=== PATIENT | female | born 1935 | race Caucasian/White ===

== ENCOUNTER 2020-02-10 18:26 | Inpatient (IN) ==
[2020-02-10] MEDS ORDERED: ONDANSETRON 4 MG/2 ML VIAL IV STA (18:58)
[2020-02-10] MEDS ORDERED: ASPIRIN 325 MG TABLET PO STA (18:58)
[2020-02-10 19:11] LABS: Basophils # 0.1 10*3/uL (0.0-0.2); Basophils % 0.5 % (0.0-0.8); Eosinophils # 0.3 10*3/uL (0.0-0.87); Eosinophils % 2.9 % (0.00-10.9); Hematocrit 41.4 VOL% (35.7-47.0); Hemoglobin 14.4 GM/DL (12.0-16.0); Immature Granulocytes % 0.4 %; Immature Granulocytes Absolute 0.04 #; Lymphocytes # 3.8 10*3/uL (1.4-4.0); Lymphocytes % 34.7 % (21.3-54.2); Mean Corpuscular HGB Conc 34.8 GM/DL (32-36); Mean Corpuscular Volume 80.2 FL (87-102); Mean Platelet Volume 9.5 FL (9.6-12.0); Monocytes % 9.2 % (1.7-12.7); Neutrophils % 52.3 % (38.7-73.9); Platelet Count 308 T/CUMM (130-400); Red Blood Count 5.16 MC/CUMM (3.8-5.5); Red Cell Distribution Width 16.9 % (9.3-17.3)
[2020-02-10 19:30] LABS: PT Patient Result 10.8 SECS (9.8-11.9)
[2020-02-10 19:41] LABS: Alanine Aminotransferase 36 U/L (13-56); Albumin 3.3 G/DL (3.4-5.0); Alkaline Phosphatase 150 U/L (45-117); Aspartate Amino Transferase 29 U/L (0-37); Bilirubin,Total < 0.39 MG/DL (0.2-1.0); Blood Urea Nitrogen 15 MG/DL (7-18); Calcium 9.1 MG/DL (8.5-10.1); Estimated Glom Filtration Rate 60 ML/MIN; Glucose 95 MG/DL (74-106); Osmolality,Calculated 258.9 MOS/KG (273-304); Total Protein 6.4 G/DL (6.4-8.3); Troponin I < 0.015 NG/ML (0.00-0.045)
[2020-02-10] MEDS ORDERED: FUROSEMIDE 40 MG/4 ML VIAL IV STA (20:01)
[2020-02-10 20:21] LABS: Bilirubin,Urine Negative (Negative); Blood, Urine Negative (Negative); Glucose,Urine (UA) Negative (Negative); Ketones,Urine Negative (Negative); Nitrite,Urine Negative (Negative); Protein,Urine 100 MG/DL; Urine Appearance CLEAR (Clear); Urine Color Straw (Yellow); Urine Specific Gravity 1.004 (1.001-1.035); Urine Urobilinogen < 2.0 EU/DL (0.2-1.0)
[2020-02-10 20:58] LABS: Free T4 (Free Thyroxine) 1.31 NG/DL (0.76-1.46); Thyroid Stimulating Hormone 15.9 uIU/ml (0.358-3.74)
[2020-02-10] MEDS ORDERED: NITROPRUSSIDE 100 MG in DEXTROSE 5% 246 ML IV PRN (21:30)
[2020-02-10] MEDS ORDERED: ALBUTEROL 2.5 MG/3 ML NEB RESP TX PRN (21:49)
[2020-02-10] MEDS ORDERED: ONDANSETRON 4 MG/2 ML VIAL IV PRN (21:49)
[2020-02-10] MEDS ORDERED: LEVOTHYROXINE 100 MCG VIAL IV ONE (22:00)
[2020-02-10] MEDS ORDERED: DOPamine 800 MG/250 ML PREMIX IV SCH (22:00)
[2020-02-10] MEDS ORDERED: ENOXAPARIN 40 MG/0.4 ML SYRINGE SUBCUT SCH (22:00)
[2020-02-10] MEDS: LACTATED RINGERS 1,000 ML IV SCH (23:51)
[2020-02-11] MEDS: PANTOPRAZOLE 40 MG VIAL IV SCH ×2 (00:09→21:59)
[2020-02-11] MEDS: busPIRone 10 MG TABLET PO SCH ×2 (02:48→15:42)
[2020-02-11 04:59] LABS: Basophils % 0.4 % (0.0-0.8); Eosinophils # 0.3 10*3/uL (0.0-0.87); Eosinophils % 2.3 % (0.00-10.9); Hematocrit 35.9 VOL% (35.7-47.0); Hemoglobin 12.5 GM/DL (12.0-16.0); Immature Granulocytes % 0.4 %; Immature Granulocytes Absolute 0.04 #; Lymphocytes # 3.5 10*3/uL (1.4-4.0); Lymphocytes % 31.1 % (21.3-54.2); Mean Corpuscular HGB Conc 34.8 GM/DL (32-36); Mean Corpuscular Volume 80.3 FL (87-102); Mean Platelet Volume 9.9 FL (9.6-12.0); Monocytes % 10.4 % (1.7-12.7); Neutrophils % 55.4 % (38.7-73.9); Platelet Count 271 T/CUMM (130-400); Red Blood Count 4.47 MC/CUMM (3.8-5.5); Red Cell Distribution Width 16.4 % (9.3-17.3); White Blood Count 11.3 T/CUMM (4-12)
[2020-02-11 05:19] LABS: Alanine Aminotransferase 29 U/L (13-56); Albumin 2.7 G/DL (3.4-5.0); Alkaline Phosphatase 117 U/L (45-117); Aspartate Amino Transferase 22 U/L (0-37); Blood Urea Nitrogen 14 MG/DL (7-18); Calcium 8.4 MG/DL (8.5-10.1); Estimated Glom Filtration Rate 62 ML/MIN; Glucose 110 MG/DL (74-106); Osmolality,Calculated 265.5 MOS/KG (273-304); Total Protein 5.6 G/DL (6.4-8.3); Troponin I < 0.015 NG/ML (0.00-0.045)
[2020-02-11] MEDS: LEVOTHYROXINE 150 MCG TABLET PO SCH (07:24)
[2020-02-11] MEDS: INSULIN NPH 100 UNIT/ML SUBCUT SCH ×2 (08:44→17:54)
[2020-02-11] MEDS: ASPIRIN EC 81 MG TABLET PO SCH (09:05)
[2020-02-11] MEDS: LACTATED RINGERS 1,000 ML IV SCH (09:23)
[2020-02-11] MEDS ORDERED: ceFAZolin 1,000 MG VIAL IRRIG ONE (09:43)
[2020-02-11 10:38] LABS: Risk Ratio 3.21; VLDL CHOLESTEROL 18.6 MG/DL
[2020-02-11] MEDS ORDERED: HEPARIN/NACL 0.9% 2 UNITS/ML 500 ML IV ONE (13:35)
[2020-02-11] MEDS ORDERED: TISSUE ADHESIVE 1 EACH APPLICATOR TOP ONE (13:35)
[2020-02-11] MEDS ORDERED: ceFAZolin 1,000 MG VIAL ONE (13:35)
[2020-02-11] MEDS ORDERED: LIDOCAINE 1% 20 ML VIAL ONE (13:35)
[2020-02-11] MEDS ORDERED: MIDAZOLAM 2 MG/2 ML VIAL ONE ×2 (13:47→14:07)
[2020-02-11] MEDS ORDERED: fentaNYL 100 MCG/2 ML VIAL ONE (13:48)
[2020-02-11] MEDS ORDERED: diphenhydrAMINE CAP 25 MG CAPSULE PO ONE (14:00)
[2020-02-11] MEDS ORDERED: DIAZEPAM 5 MG TABLET PO ONE (14:00)
[2020-02-11] MEDS ORDERED: FUROSEMIDE 20 MG/2 ML VIAL IV ONE (15:40)
[2020-02-11] MEDS: carvediloL 6.25 MG TABLET PO SCH (21:59)
[2020-02-12 04:36] LABS: Basophils % 0.4 % (0.0-0.8); Eosinophils # 0.5 10*3/uL (0.0-0.87); Eosinophils % 4.8 % (0.00-10.9); Hematocrit 37.4 VOL% (35.7-47.0); Hemoglobin 12.9 GM/DL (12.0-16.0); Immature Granulocytes % 0.5 %; Immature Granulocytes Absolute 0.05 #; Lymphocytes % 19.5 % (21.3-54.2); Mean Corpuscular HGB Conc 34.5 GM/DL (32-36); Mean Corpuscular Volume 81.5 FL (87-102); Mean Platelet Volume 9.8 FL (9.6-12.0); Monocytes % 11.2 % (1.7-12.7); Neutrophils % 63.6 % (38.7-73.9); Platelet Count 285 T/CUMM (130-400); Red Blood Count 4.59 MC/CUMM (3.8-5.5); Red Cell Distribution Width 16.9 % (9.3-17.3); White Blood Count 10.2 T/CUMM (4-12)
[2020-02-12 04:52] LABS: Calcium 8.3 MG/DL (8.5-10.1); Osmolality,Calculated 267.1 MOS/KG (273-304)
[2020-02-12] MEDS: LEVOTHYROXINE 150 MCG TABLET PO SCH (05:25)
[2020-02-12] MEDS: ASPIRIN EC 81 MG TABLET PO SCH (09:27)
[2020-02-12] MEDS: carvediloL 6.25 MG TABLET PO SCH (09:27)
[2020-02-12] MEDS: INSULIN NPH 100 UNIT/ML SUBCUT SCH ×2 (09:28→16:57)
[2020-02-12] MEDS ORDERED: hydrALAZINE 20 MG/1 ML VIAL IV PRN (11:25)
[2020-02-12] MEDS ORDERED: carvediloL 6.25 MG TABLET PO ONE (11:25)
[2020-02-12] MEDS: amLODIPine 5 MG TABLET PO SCH (11:33)
[2020-02-12] MEDS ORDERED: hydrALAZINE 20 MG/1 ML VIAL IV ONE (13:07)
[2020-02-12] MEDS ORDERED: FUROSEMIDE 20 MG/2 ML VIAL IV ONE (14:00)
[2020-02-12] MEDS: ENOXAPARIN 40 MG/0.4 ML SYRINGE SUBCUT SCH (15:00)
[2020-02-12] MEDS: carvediloL 12.5 MG TABLET PO SCH (20:43)
[2020-02-12] MEDS: PANTOPRAZOLE 40 MG VIAL IV SCH (22:20)
[2020-02-13 04:05] LABS: Basophils % 0.4 % (0.0-0.8); Eosinophils # 0.8 10*3/uL (0.0-0.87); Eosinophils % 7.1 % (0.00-10.9); Hematocrit 37.6 VOL% (35.7-47.0); Hemoglobin 12.8 GM/DL (12.0-16.0); Immature Granulocytes % 0.4 %; Immature Granulocytes Absolute 0.04 #; Lymphocytes # 2.8 10*3/uL (1.4-4.0); Lymphocytes % 24.9 % (21.3-54.2); Mean Corpuscular Volume 82.3 FL (87-102); Mean Platelet Volume 9.3 FL (9.6-12.0); Monocytes % 11.7 % (1.7-12.7); Neutrophils % 55.5 % (38.7-73.9); Platelet Count 245 T/CUMM (130-400); Red Blood Count 4.57 MC/CUMM (3.8-5.5); Red Cell Distribution Width 16.8 % (9.3-17.3); White Blood Count 11.1 T/CUMM (4-12)
[2020-02-13 04:23] LABS: Calcium 8.2 MG/DL (8.5-10.1); Osmolality,Calculated 261.7 MOS/KG (273-304)
[2020-02-13] MEDS: LEVOTHYROXINE 150 MCG TABLET PO SCH (06:20)
[2020-02-13] MEDS: INSULIN NPH 100 UNIT/ML SUBCUT SCH ×2 (08:53→18:28)
[2020-02-13] MEDS: carvediloL 12.5 MG TABLET PO SCH (08:53)
[2020-02-13] MEDS: ASPIRIN EC 81 MG TABLET PO SCH (08:54)
[2020-02-13] MEDS: amLODIPine 5 MG TABLET PO SCH (08:54)
[2020-02-13] MEDS ORDERED: carvediloL 12.5 MG TABLET PO ONE (10:29)
[2020-02-13] MEDS: ENOXAPARIN 40 MG/0.4 ML SYRINGE SUBCUT SCH (15:03)
[2020-02-13] MEDS: SPIRONOLACTONE 25 MG TABLET PO SCH ×2 (18:24→22:21)
[2020-02-13] MEDS ORDERED: EZETIMIBE 10 MG TABLET PO SCH (21:00)
[2020-02-13] MEDS: carvediloL 25 MG TABLET PO SCH (22:20)
[2020-02-13] MEDS: PANTOPRAZOLE 40 MG VIAL IV SCH (22:21)
[2020-02-14] MEDS: LEVOTHYROXINE 150 MCG TABLET PO SCH (05:45)
[2020-02-14 05:47] LABS: Basophils % 0.4 % (0.0-0.8); Eosinophils # 0.8 10*3/uL (0.0-0.87); Hematocrit 36.3 VOL% (35.7-47.0); Hemoglobin 12.4 GM/DL (12.0-16.0); Immature Granulocytes % 0.3 %; Immature Granulocytes Absolute 0.03 #; Lymphocytes # 2.4 10*3/uL (1.4-4.0); Lymphocytes % 24.8 % (21.3-54.2); Mean Corpuscular HGB Conc 34.2 GM/DL (32-36); Mean Corpuscular Volume 81.6 FL (87-102); Mean Platelet Volume 9.2 FL (9.6-12.0); Monocytes % 11.4 % (1.7-12.7); Neutrophils % 55.1 % (38.7-73.9); Platelet Count 234 T/CUMM (130-400); Red Blood Count 4.45 MC/CUMM (3.8-5.5); Red Cell Distribution Width 16.8 % (9.3-17.3); White Blood Count 9.5 T/CUMM (4-12)
[2020-02-14 06:09] LABS: Calcium 8.2 MG/DL (8.5-10.1); Osmolality,Calculated 265.7 MOS/KG (273-304)
[2020-02-14] MEDS ORDERED: amLODIPine 10 MG TABLET PO SCH (09:00)
[2020-02-14] MEDS ORDERED: hydrALAZINE 25 MG TABLET PO SCH (09:00)
[2020-02-14] MEDS: INSULIN NPH 100 UNIT/ML SUBCUT SCH (09:17)
[2020-02-14] MEDS: carvediloL 25 MG TABLET PO SCH (09:19)
[2020-02-14] MEDS: SPIRONOLACTONE 25 MG TABLET PO SCH (09:19)
[2020-02-14] MEDS: ASPIRIN EC 81 MG TABLET PO SCH (09:19)
[2020-02-14 11:32] VITALS: BP 156/63
== END 2020-02-14 13:55 | disposition home health service (06) | DRG 242 ==
LOC: N.ED 18:26 → N.EDINP 21:03 → SUATTDRO 21:03 → N.ICU 23:35 → N.TELEN 02-13 15:28
PROVIDERS: ADMIT Family Medicine; ATTEND Family Medicine

== ENCOUNTER 2021-10-05 07:05 | Inpatient (IN) ==
[2021-10-01 12:09] LABS: Basophils # 0.1 10*3/uL (0.0-0.2); Basophils % 0.7 % (0.0-0.8); Eosinophils # 0.7 10*3/uL (0.0-0.87); Eosinophils % 7.3 % (0.00-10.9); Hematocrit 44.1 VOL% (35.7-47.0); Immature Granulocytes % 0.3 %; Immature Granulocytes Absolute 0.03 #; Lymphocytes # 2.7 10*3/uL (1.4-4.0); Lymphocytes % 29.8 % (21.3-54.2); Mean Corpuscular Volume 86.1 FL (87-102); Mean Platelet Volume 9.6 FL (9.6-12.0); Monocytes # 1.1 10*3/uL (0.11-0.8); Monocytes % 11.7 % (1.7-12.7); Neutrophils % 50.2 % (38.7-73.9); Platelet Count 293 T/CUMM (130-400); Red Blood Count 5.12 MC/CUMM (3.8-5.5); Red Cell Distribution Width 13.3 % (9.3-17.3); White Blood Count 9.2 T/CUMM (4-12)
[2021-10-01 12:49] LABS: Albumin 3.4 G/DL (3.4-5.0); Bilirubin,Total 0.4 MG/DL (0.20-1.00); Calcium 9.1 MG/DL (8.5-10.1); Osmolality,Calculated 277.1 MOS/KG (273-304); Potassium 4.3 MMOL/L (3.5-5.1); Total Protein 6.3 G/DL (6.4-8.2)
[~2021-10-05 07:05] MED LIST: LACTATED RINGERS 1,000 ML IV SCH; SODIUM CHLORIDE 0.9% 100 ML IV ONE; ceFAZolin 1,000 MG VIAL ONE
[2021-10-05] MEDS ORDERED: SCOPOLAMINE 1.5 MG PATCH TRANSDERM ONE (07:19)
[2021-10-05] MEDS ORDERED: DIAZEPAM 5 MG TABLET PO ONE (07:19)
[2021-10-05] MEDS ORDERED: FAMOTIDINE 20 MG TABLET PO ONE (07:19)
[2021-10-05] MEDS ORDERED: fentaNYL 100 MCG/2 ML VIAL ONE (08:35)
[2021-10-05] MEDS ORDERED: HEPARIN 5,000 UNIT/1 ML VIAL ONE (08:52)
[2021-10-05] MEDS ORDERED: ETOMIDATE 40 MG/20 ML VIAL IV ONE (08:55)
[2021-10-05] MEDS ORDERED: ePHEDrine 50 MG/ML VIAL ONE (08:55)
[2021-10-05] MEDS ORDERED: ROCURONIUM 50 MG/5 ML VIAL IV ONE (08:55)
[2021-10-05] MEDS ORDERED: HEPARIN 10,000 UNIT/10 ML VIAL ONE (08:55)
[2021-10-05] MEDS ORDERED: PHENYLEPHRINE 1 MG/10 ML SYRINGE IV ONE (08:55)
[2021-10-05] MEDS ORDERED: PROTAMINE SULFATE 50 MG/5 ML VIAL IV ONE (08:55)
[2021-10-05] MEDS ORDERED: SEVOFLURANE 1 UNIT/15 MINUTE INH ONE ×4 (09:09→09:57)
[2021-10-05] MEDS ORDERED: SODIUM CHLORIDE 0.9% 1,000 ML IV ONE (09:57)
[2021-10-05] MEDS ORDERED: ONDANSETRON 4 MG/2 ML VIAL ONE (10:08)
[2021-10-05] MEDS ORDERED: CALCIUM CHLORIDE 1,000 MG/10 ML VIAL IV ONE (10:15)
[2021-10-05] MEDS ORDERED: NEOSTIGMINE 10 MG/10 ML VIAL ONE (10:34)
[2021-10-05] MEDS ORDERED: GLYCOPYRROLATE 0.4 MG/2 ML VIAL ONE (10:34)
[2021-10-05] MEDS ORDERED: SUGAMMADEX 200 MG/2 ML VIAL IV ONE (10:36)
[2021-10-05] MEDS ORDERED: GLUCAGON 1 MG VIAL IM PRN (10:48)
[2021-10-05] MEDS ORDERED: HYDROmorphone 1 MG/1 ML SYRINGE IV PRN ×2 (10:48)
[2021-10-05] MEDS ORDERED: PROMETHAZINE 25 MG/1 ML VIAL IM PRN (10:48)
[2021-10-05] MEDS ORDERED: NITROPRUSSIDE 100 MG in DEXTROSE 5% 250 ML IV PRN (10:48)
[2021-10-05] MEDS ORDERED: NALOXONE 0.4 MG/ML VIAL IV PRN (10:48)
[2021-10-05] MEDS ORDERED: PHENYLEPHRINE DRIP 40 MG/250 ML PREMIX IV PRN (10:48)
[2021-10-05] MEDS ORDERED: oxyCODONE/ACETAMINOPHEN 5-325 MG TABLET PO PRN ×2 (10:48)
[2021-10-05] MEDS ORDERED: ONDANSETRON 4 MG/2 ML VIAL IV PRN (10:48)
[2021-10-05 11:49] VITALS: BP 141/55
[2021-10-05] MEDS: LACTATED RINGERS 1,000 ML IV SCH ×2 (11:55→23:58)
[2021-10-05] MEDS: INSULIN REGULAR 100 UNIT/ML SUBCUT SCH ×3 (12:00→23:58)
[2021-10-05] MEDS ORDERED: DEXTROSE 10% 250 ML BAG IV PRN (12:18)
[2021-10-05] MEDS ORDERED: KETOROLAC 30 MG/1 ML VIAL IV ONE (13:11)
[2021-10-05] MEDS: KETOROLAC 10 MG TABLET PO SCH ×2 (18:16→23:59)
[2021-10-05] MEDS: carvediloL 25 MG TABLET PO SCH (20:36)
[2021-10-05] MEDS: buPROPion 75 MG TABLET PO SCH (20:37)
[2021-10-05] MEDS ORDERED: EZETIMIBE 10 MG TABLET PO SCH (21:00)
[2021-10-06] MEDS: INSULIN REGULAR 100 UNIT/ML SUBCUT SCH ×2 (06:35→13:46)
[2021-10-06] MEDS: KETOROLAC 10 MG TABLET PO SCH (06:50)
[2021-10-06] MEDS: LACTATED RINGERS 1,000 ML IV SCH (06:55)
[2021-10-06] MEDS ORDERED: hydrALAZINE 25 MG TABLET PO SCH (09:00)
[2021-10-06] MEDS ORDERED: DOCUSATE SODIUM 100 MG CAPSULE PO SCH (09:00)
[2021-10-06] MEDS ORDERED: amLODIPine 10 MG TABLET PO SCH (09:00)
[2021-10-06] MEDS ORDERED: INSULIN ASPART PROTAMINE/ASPART 70/30 100 UNIT/ML SUBCUT SCH (09:00)
[2021-10-06] MEDS ORDERED: LEVOTHYROXINE 88 MCG TABLET PO SCH (09:00)
[2021-10-06] MEDS ORDERED: CLOPIDOGREL 75 MG TABLET PO SCH (09:00)
[2021-10-06] MEDS ORDERED: ASPIRIN EC 81 MG TABLET PO SCH (09:00)
[2021-10-06] MEDS: buPROPion 75 MG TABLET PO SCH (09:47)
[2021-10-06] MEDS: carvediloL 25 MG TABLET PO SCH (09:48)
== END 2021-10-06 14:27 | disposition home or self-care (01) | DRG 39 ==
LOC: N.SDSINP 07:05 → N.CC 12:04
PROVIDERS: ADMIT Surgery; ATTEND Surgery